=== PATIENT | female | born 1990 | race Caucasian/White ===

== ENCOUNTER 2023-08-15 11:13 | Emergency (ER) | payer MEDICAID ==
[~2023-08-15] VITALS: Ht 162.6 cm; Wt 100.0 kg
[2023-08-15 11:37] VITALS: BP 122/85; PULSE 133; RESP 18; TEMP 97.9; O2SAT 98
== END 2023-08-15 14:53 | disposition left against medical advice (07) ==
LOC: ER 11:13
DX: M54.9 Dorsalgia, unspecified (principal); Z53.21 Procedure and treatment not carried out due to patient leaving prior to being seen by health care provider
CPT/HCPCS: 99281; A4615

== ENCOUNTER 2023-08-16 08:28 | Emergency (ER) | payer MEDICAID ==
[~2023-08-16] VITALS: Ht 162.6 cm; Wt 121.4 kg
[2023-08-16 08:31] VITALS: BP 126/84; PULSE 105; RESP 18; TEMP 98.9; O2SAT 98
== END 2023-08-16 13:41 | disposition left against medical advice (07) ==
LOC: ER 08:28
DX: M54.9 Dorsalgia, unspecified (principal); Z53.21 Procedure and treatment not carried out due to patient leaving prior to being seen by health care provider
CPT/HCPCS: 99281

== ENCOUNTER 2025-10-05 03:11 | Emergency (ER) | payer MEDICAID ==
[~2025-10-05] VITALS: Ht 157.5 cm; Wt 139.3 kg
[2025-10-05 03:14] VITALS: BP 159/90; TEMP 98.3
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
[2025-10-05 04:04] VITALS: PULSE 80; RESP 16; O2SAT 98
== END 2025-10-05 04:05 | disposition home or self-care (01) ==
LOC: ER 03:11
DX: G89.29 Other chronic pain (principal); M25.562 Pain in left knee; Z91.040 Latex allergy status; Z88.6 Allergy status to analgesic agent; Z88.8 Allergy status to other drugs, medicaments and biological substances; Z98.890 Other specified postprocedural states
CPT/HCPCS: 99282